=== PATIENT | female | born 1995 ===

== ENCOUNTER 2018-06-27 17:00 | Emergency (ER) | payer SELFPAY ==
[~2018-06-27] VITALS: Ht 152.4 cm; Wt 54.5 kg
[2018-06-27 17:04] VITALS: Ht 152.4 cm; Wt 54.5 kg
[2018-06-27] MEDS ORDERED: BACLOFEN20 M1 PO (19:47)
[2018-06-27] MEDS ORDERED: VOLTAREN75 MG PO (19:47)
[2018-06-27 21:11] VITALS: BP 120/69
== END 2018-06-27 21:12 | disposition home or self-care (01) ==
LOC: D.ER 17:00
DX: S39.012A Strain of muscle, fascia and tendon of lower back, initial encounter (principal); V43.52XA Car driver injured in collision with other type car in traffic accident, initial encounter; Y93.89 Activity, other specified; Y92.410 Unspecified street and highway as the place of occurrence of the external cause; M62.838 Other muscle spasm